=== PATIENT | male | born 1965 | race Caucasian/White ===

== ENCOUNTER 2022-12-24 07:11 | Emergency (ER) | payer SELFPAY ==
[~2022-12-24] VITALS: Ht 175.3 cm; Wt 93.2 kg
[2022-12-24 07:15] VITALS: BP 161/97; PULSE 127; RESP 20; TEMP 98.7; O2SAT 96
== END 2022-12-24 07:36 ==
LOC: ER 07:11
DX: Z02.89 Encounter for other administrative examinations (principal)
CPT/HCPCS: 99283